=== PATIENT | female | born 1985 | race Caucasian/White ===

== ENCOUNTER 2016-07-20 13:08 | Outpatient (CLI) | payer MEDICAID ==
[~2016-07-20] VITALS: Ht 152.4 cm; Wt 76.0 kg
[2016-07-20 13:18] VITALS: Ht 152.4 cm; Wt 76.0 kg
[2016-07-20] MEDS ORDERED: PRENAT PO (13:19)
[2016-07-20 13:23] VITALS: BP 107/58; PULSE 98; RESP 18
--- NOTE | 2016-07-20 14:25 | RADRPT ---
PROCEDURE: US OB biophysical profile. CLINICAL INDICATION: decreased movements, status post fall TECHNIQUE: Multiple sonographic images of the pelvis were obtained. The images were reviewed on a PACS workstation. COMPARISON: No prior studies are available for comparison. FINDINGS: There is a single viable intrauterine gestation. Cardiac activity is present with 142 beats per min cher[place]ae [place]. There is a vertex presentation. The placenta is fundal. There is no evidence of placental abruption. There is a normal amount of amniotic fluid with an STEVE = 10.4 cm. Biophysical profile: movement 2/2 tone 2/2. breathing 2/2 STEVE 2/2 Total 11/23 RPTAT: AA . IMPRESSION: Normal biophysical profile. . .Edil Beach MD, Date Time Electronically viewed and signed by .Edil Beach MD, MD on 07/20/2016 14:25 .S/
--- NOTE | 2016-07-20 15:07 | TRIAGE ---
OB Triage Datetime Report Generated by CPN: 07/20/2016 15:06 Datetime: 07/20/2016 14:54 Labor Evaluation Frequency: x2 contractions noted in last hour Monitor Mode: External Quality: Mild Pattern: Normal: <= 5 Contractions in 10 Minutes Resting Tone [place]: Relaxed Heart Rate FHR Baseline Rate: 135 Monitor Mode: External US FHR Baseline Changes: No Baseline Change Variability: Moderate 6-25 bpm Accelerations: 15X15 Decelerations: None Category: Category I Datetime: 07/20/2016 13:53 Labor Evaluation Frequency: x2 contractions in last 30 minutes Monitor Mode: External Duration (sec)2399: 50-100 Quality: Mild Pattern: Normal: <= 5 Contractions in 10 Minutes Resting Tone [place]: Relaxed Heart Rate FHR Baseline Rate: 140 Monitor Mode: External US FHR Baseline Changes: No Baseline Change Variability: Moderate 6-25 bpm Accelerations: 15X15 Decelerations: None Category: Category I Pain Presence: None/Denies Pain Assessment Comments: Pt denies feeling pain or pressure with contractions Datetime: 07/20/2016 13:27 Vaginal Exam Dilatation (cms): 1.0 Effacement (%): 40 Station: -3 Exam By: Erin RN Datetime: 07/20/2016 13:25 Assessment Type: Triage Maternal Assessment Level of Consciousness: Fully Conscious DTR's/Clonus: DTRs 2+; No Clonus Headache: Denies Blurred Vision: No Respiratory Effort: Unlabored; Regular Rhythm; Equal Expansion Breath Sounds, Left: Clear and Equal Breath Sounds, Right: Clear and Equal Nausea/Vomiting: Denies RUQ Epigastric Pain: Denies Lower Extremities Edema: Bilateral Lower Extremities Degree: Trace Upper Extremities Edema: Bilateral Upper Extremities Degree: Trace Facial Edema: None Fall Risk Assessment History of Falling: (0) No Secondary Diagnosis: (0) No Ambulatory Aid: (0) Bedrest/Nurse Assist IV Therapy: (0) No Gait: (0) Normal/Bedrest/Immobile Mental Status: (0) Oriented to Own Ability Fall Score: 0 Fall Risk Score Definition: No Risk: No action required Datetime: 07/20/2016 13:23 Temperature Route: Oral Pain Assessment Pain Scale: 8 Pain Presence: Intermittent Pain Type: Ache Pain Location: Abdomen; Back Pain Goal: 0 Pain Relief Measures: Comfort Measures Pain Assessment Comments: Pt states pain is from fall, denying contractions Datetime: 07/20/2016 13:18 Time of Arrival: 07/20/2016 13:05 EGA: 39.2 Arrived By: Ambulatory Arrived From: Dr. Office Chief Complaint: Fall yesterday Movement: Present Contractions: Denies/Absent Rupture of Membranes: Denies Vaginal Bleeding: Normal Show Vaginal Discharge: Denies Recent Sexual Intercouse: Denies Abdominal Trauma: Fall Patient Complaints: Other Time Provider Notified: 07/20/2016 13:31 Provider Notified: Coy Initial Plan: NST, BPP Datetime: 07/20/2016 13:15 Stage of : OB Triage
--- NOTE | 2016-07-20 15:15 | CONS ---
Date/Time of Note Date/Time of Note DATE: 07/20/16 TIME: 15:07 Consultation Date/Type/Reason Admit Date/Time July 20, 2069 OB triage consult Reason for Consultation This patient is a 31 years old 3 para 2 who came to triage area regarding a bulge that she had yesterday In describing her fall she says she fell down on her buttock Her main complaint is lower abdominal and low back pain no complaint of vaginal bleeding or leakage of fluid from vagina her EDC is July 23 which makes her 39 weeks and 2 days now On reviewing her past history she does not have any history of allergy delivery was vaginal On examination she she has a short stature and is a lady at term Her ear nose throat neck chest all appears to be normal abdomen is soft occasional contraction babies in vertex presentation movement is Her lower extremities are normal no edema no major reflux or On pelvic examination her cervix was 1 cm 40% effaced -2 station no evidence of rupture of membrane 2 to confirm condition and ultrasound study was ordered On ultrasound biophysical profile was 11/23 STEVE 10.4 cm single viable intrauterine gestation with cardiac activity at 1 42 bpm cental was fundal no evidence of placental abruption was Subjective hx not possible: pt non-verbal Constitutional: No chills, No diaphoresis, No disoriented, No febrile, No improved, No no complaints, No other, No poor po, No requiring IVF, No requiring O2 Eyes: No discharge, No no complaints, No other, No pain, No redness, No visual change ENT: No bleeding, No congestion, No discharge, No dysphagia, No no complaints, No other, No pain, No sore throat Respiratory: No cough, No no complaints, No other, No pain, No pleuritic pain, No shortness of breath, No sputum, No wheezing Cardiovascular: No chest pain, No edema, No lightheadedness, No no complaints, No orthopenea, No other, No palpitations, No paroxysmal nocturnal dyspnea Gastrointestinal: No blood, No constipation, No decreased appetite, No diarrhea , No flatus, No nausea, No no complaints, No other, No pain, No passing stool, No vomiting Genitourinary: other (As I mentioned on pelvic examination the cervix was basically closed to 1 cm effacement was around 40% and at -3 station), No bleeding, No discharge, No dysuria, No flank pain, No hematuria, No no complaints Musculoskeletal: No back pain, No bone/joint pain, No neck pain, No no complaints, No other, No restricted range of motion, No swelling Skin: No bruising, No erythema, No laceration, No no complaints, No other, No pruritis, No rash, No skin lesions Neurologic: No confusion, No dizziness, No focal-weakness, No headache, No no complaints, No other, No seizure, No syncope Endocrine: other (Knee-jerk reflex was normal) Psychological: No anxiety, No confusion, No depression, No nl mood/affect, No no complaints, No other, No suicidal Additional Comments With these finding patient was reassured and recommended to make an appointment to be seen her manager pulmonary clinic for follow-up End of dictation thank you Social History Smoking Status: Never smoker Exam/Review of Systems Vital Signs Vitals Vital Signs Date Time Temp Pulse Resp B/P Pulse Ox O2 Delivery O2 Flow Rate FiO2 07/20/16 13:23 99.0 98 18 107/58 Room Air NATHAN DOS SANTOS MD Jul 20, 2016 15:15
== END 2016-07-20 15:00 | disposition home or self-care (01) ==
LOC: L-D 13:08 → OBT 13:08
PROVIDERS: ATTEND Obstetrics & Gynecology
DX: O26.893 Other specified pregnancy related conditions, third trimester (principal); R10.30 Lower abdominal pain, unspecified; M54.5 Low back pain; Z3A.39 39 weeks gestation of pregnancy
CPT/HCPCS: 76818; Z7500; G0463

== ENCOUNTER 2016-07-22 18:50 | Inpatient (IN) | payer MEDICAID ==
[~2016-07-22] VITALS: Ht 152.4 cm; Wt 75.4 kg
[~2016-07-22 18:50] MED LIST: PRENAT PO
[2016-07-22 19:13] VITALS: Ht 152.4 cm; Wt 75.4 kg
[2016-07-22 19:14] VITALS: BP 121/62; PULSE 88; RESP 20
--- NOTE | 2016-07-22 20:23 | RADRPT ---
PROCEDURE: US OB. CLINICAL INDICATION: Induction of labor. TECHNIQUE: Multiple sonographic images of the pelvis were obtained. Transabdominal imaging only w as performed. The images were reviewed on a PACS workstation. COMPARISON: Exam dated 07/20/2016. FINDINGS: There is a single viable intrauterine gestation. Cardiac activity is present with a heart rate of 1 37 bpm. There is a cephalic presentation. Measurements were made in order to determine age. The results are as follows: BPD = 9.16 cm HC = 32.95 cm AC = 35.67 cm FL = 7.2 a cm Estimated gestational age of approximately 37 weeks 6 days. The estimated date of delivery is 08/06/2016. The EFW = 3519 g, at the 48 percentile. The placenta is fundal, grade II. There is no evidence for an abruption or placenta previa. IMPRESSION: 1. Single viable intrauterine gestation of approximately 37 weeks 6 days. 2. The estimated date of delivery is 08/06/2016. RPTAT: HLBP .Faustino Pedroza MD, MD Date Time Electronically viewed and signed by .Faustino Pedroza MD, MD on 07/22/2016 20:23 .P/
--- NOTE | 2016-07-22 20:24 | RADRPT ---
PROCEDURE: OB ultrasound for biophysical profile with STEVE. CLINICAL INDICATION: Decreased movements. TECHNIQUE: Multiple sonographic images of the gravid uterus were obtained. The images were review ed on a PACS workstation. COMPARISON: None. FINDINGS: breathing movement = 2/2 tone = 2/2 motion = 2/2 STEVE = 2/2 There is a single viable intrauterine gestation with cardiac and a heart rate of 142 bpm. Ther e is a cephalic presentation and a fundal, grade II placenta. There is no evidence of abruption or placenta previa. STEVE = 9.5 cm IMPRESSION: 1. Single viable intrauterine gestation. 2. Biophysical profile = 8/8. 3. STEVE = 9.5 cm. RPTAT: HLBP .Faustino Pedroza MD, MD Date Time Electronically viewed and signed by .Faustino Pedroza MD, MD on 07/22/2016 20:23 .P/
[2016-07-22] MEDS ORDERED: CARBOPROST 250 MCG INJ IM PRN (21:30)
[2016-07-22] MEDS ORDERED: OXYTOCIN 30 UNITS/LR 500 ML IV PRN (21:30)
[2016-07-22] MEDS ORDERED: LACTATED RINGER'S 1,000 ML IV PRN (21:30)
[2016-07-22] MEDS ORDERED: METHYLERGONOVINE 0.2 MG INJ IM PRN (21:30)
[2016-07-22] MEDS ORDERED: MISOPROSTOL 200 MCG TAB PR PRN (21:30)
[2016-07-22] MEDS ORDERED: OXYTOCIN 30 UNITS/LR 500 ML IV SCH ×2 (21:30→23:15)
[2016-07-22] MEDS ORDERED: LIDOCAINE 1% (MPF) 30 ML INJ INJ PRN (21:30)
[2016-07-22] MEDS: LACTATED RINGER'S 1,000 ML IV SCH (22:09)
[2016-07-22 22:14] LABS: ADD SCAN DIFF NO
[2016-07-22 22:18] LABS: BASOPHILS % 0.2 % (0.0-2.0); EOSINOPHILS # 0.1 10^3/ul (0.0-0.5); EOSINOPHILS % 0.7 % (0.0-7.0); HEMATOCRIT 33.5 % (37.0-47.0); HEMOGLOBIN 11.4 g/dl (12.0-16.0); LYMPHOCYTES # 1.9 10^3/ul (0.8-2.9); LYMPHOCYTES % 19.4 % (15.0-51.0); MEAN CORPUSCULAR HEMOGLOBIN 29.8 pg (29.0-33.0); MEAN CORPUSCULAR VOLUME 87.7 fl (82.0-101.0); MEAN PLATELET VOLUME 9.8 fl (7.4-10.4); MONOCYTE # 0.8 10^3/ul (0.3-0.9); MONOCYTES % 7.7 % (0.0-11.0); NEUTROPHIL # 7.1 10^3/ul (1.6-7.5); NEUTROPHILS % 71.3 % (39.0-77.0); PLATELET COUNT 190 10^3/UL (140-415); RED BLOOD COUNT 3.82 10^6/ul (4.20-5.40); RED CELL DISTRIBUTION WIDTH 13.7 % (11.5-14.5)
[2016-07-22 22:27] LABS: INR 0.9; PARTIAL THROMBOPLASTIN TIME 25.7 Sec (25.0-35.0); PROTIME 12.1 Sec (12.2-14.2); PT RATIO 0.9
--- NOTE | 2016-07-22 23:06 | HP ---
Date/Time of Note Date/Time of Note DATE: 07/22/16 TIME: 22:49 OB - History Hx of Present Free Text/Dictation 30 yo P2 @ 39+ wks presents w decreased FM, now feels baby moving. Desires elective induction, as she had a previous full-term stillborn POB- x 1; x 1-stillborn, possible trisomy 18 Last Menstrual Period: Oct 26, 2015 Estimated Due Date: Jul 31, 2016 : 3 Para: 2 Care: Good Care Past Family/Social History * Past Medical, Surgical, Family and Obstetric Histories reviewed from chart. Blood Type: O+ Rubella: immune RPR/VDRL: Negative GBS Status: Negative HBsAG: Negative OB Admission Exam Vital Signs Vital Signs Vital Signs Date Time Temp Pulse Resp B/P Pulse Ox O2 Delivery O2 Flow Rate FiO2 07/22/16 19:14 98.3 88 20 121/62 Room Air Physical Exam Abdomen: WNL Cervical Dilatation: 2cm Effacement: 50% Station: -3 Membranes: Intact Accelerations: Accelerations Present Contractions on Admission: < 5 Minutes Apart Intensity: Mild Last 72 hours Lab Results CBC & BMP 07/22/16 22:00 OB Assessment/Plan Other Assessment: patient desires IOL, secondary to h/o stillborn - reassuring status Other plan: will start pitocin after patient eats and ambulates epidural prn anticipate NICOLA Jackson MD Jul 22, 2016 22:59
[2016-07-22 23:43] LABS: ALBUMIN 3.2 g/dl (3.3-4.9); BILIRUBIN,INDIRECT 0.2 mg/dl (0-1.1); BILIRUBIN,TOTAL 0.2 mg/dl (0.2-1.3); CALCIUM 9.9 mg/dl (8.4-10.2); CREATININE 0.5 mg/dl (0.44-1.00); POTASSIUM 3.9 mmol/L (3.5-5.1); TOTAL PROTEIN 6.4 g/dl (6.1-8.1); URIC ACID 5.8 mg/dl (3.1-7.9)
[2016-07-23 00:51] LABS: ADD UMIC YES; URINE BILIRUBIN (Dip) NEGATIVE (NEGATIVE); URINE BLOOD (Dip) 1+ (NEGATIVE); URINE COLOR LT. YELLOW (YELLOW); URINE GLUCOSE (Dip) NEGATIVE (NEGATIVE); URINE KETONES (Dip) NEGATIVE (NEGATIVE); URINE LEUKOCYTE ESTERASE (Dip) NEGATIVE (NEGATIVE); URINE NITRITE (Dip) NEGATIVE (NEGATIVE); URINE TOTAL PROTEIN (Dip) NEGATIVE (NEGATIVE); URINE UROBILINOGEN (Dip) 1.0 E.U./dL (0.1-1.0)
[2016-07-23 01:44] LABS: BACTERIA,URINE FEW; SQUAMOUS EPITHELIAL CELL,UR RARE; URINE RBCS 0-2 /HPF (0)
--- NOTE | 2016-07-23 02:16 | TRIAGE ---
OB Triage Datetime Report Generated by CPN: 07/23/2016 02:15 Datetime: 07/23/2016 02:00 Stage of : Labor Labor Evaluation Frequency: 2-4 Monitor Mode: External Duration (sec)2399: 60-120 Quality: Mild Pattern: Normal: <= 5 Contractions in 10 Minutes Resting Tone [place]: Relaxed Heart Rate FHR Baseline Rate: 130 Monitor Mode: External US Variability: Moderate 6-25 bpm Accelerations: 15X15 Decelerations: None Category: Category I Pain Relief Measures: Comfort Measures Datetime: 07/23/2016 01:37 Monitor Mode: Palpation Quality: Mild Resting Tone [place]: Relaxed Datetime: 07/23/2016 01:30 Stage of : Labor Labor Evaluation Frequency: 2-6 Monitor Mode: External Duration (sec)2399: 70-120 Quality: Mild Pattern: Normal: <= 5 Contractions in 10 Minutes Resting Tone [place]: Relaxed Heart Rate FHR Baseline Rate: 135 Monitor Mode: External US Variability: Moderate 6-25 bpm Accelerations: 15X15 Decelerations: None Category: Category I Pain Relief Measures: Comfort Measures Datetime: 07/23/2016 01:00 Stage of : Labor Labor Evaluation Frequency: irreg Monitor Mode: External Duration (sec)2399: 30-80 Quality: Mild Pattern: Normal: <= 5 Contractions in 10 Minutes Resting Tone [place]: Relaxed Heart Rate FHR Baseline Rate: 140 Monitor Mode: External US Variability: Moderate 6-25 bpm Accelerations: 15X15 Decelerations: None Category: Category I Pain Relief Measures: Comfort Measures Datetime: 07/23/2016 00:39 Labor Evaluation Frequency: 1-5 Monitor Mode: External Duration (sec)2399: 60-90 Quality: Mild Pattern: Normal: <= 5 Contractions in 10 Minutes Resting Tone [place]: Relaxed Heart Rate FHR Baseline Rate: 145 Monitor Mode: External US Variability: Moderate 6-25 bpm Accelerations: 15X15 Decelerations: None Category: Category I Comments: STRIP REVIEW LAST 15 MINS Datetime: 07/23/2016 00:00 Labor Evaluation Frequency: irregular Monitor Mode: External Quality: Mild Pattern: Normal: <= 5 Contractions in 10 Minutes Resting Tone [place]: Relaxed Heart Rate FHR Baseline Rate: 155 Monitor Mode: External US FHR Baseline Changes: No Baseline Change Variability: Moderate 6-25 bpm Accelerations: 15X15 Decelerations: None Category: Category I Datetime: 07/22/2016 23:44 Temperature Route: Oral Pain Assessment Pain Scale: 8 Pain Presence: Intermittent Pain Type: Cramping Pain Location: Abdomen; Back Pain Goal: 4 Pain Relief Measures: Comfort Measures Datetime: 07/22/2016 23:41 Monitor Mode: Palpation Quality: Mild Resting Tone [place]: Relaxed Datetime: 07/22/2016 23:00 Stage of : Labor Labor Evaluation Frequency: irreg Monitor Mode: External Duration (sec)2399: 60-130 Quality: Mild Pattern: Normal: <= 5 Contractions in 10 Minutes Resting Tone [place]: Relaxed Contraction Comments: difficult to pickle solution maker UC's Heart Rate FHR Baseline Rate: 130 Monitor Mode: External US Variability: Moderate 6-25 bpm Accelerations: 15X15 Decelerations: None Category: Category I Pain Relief Measures: Comfort Measures Datetime: 07/22/2016 22:38 Monitor Mode: Palpation Quality: Mild Resting Tone [place]: Relaxed Datetime: 07/22/2016 22:00 Stage of : Labor Labor Evaluation Frequency: 1-6 Monitor Mode: External Duration (sec)2399: 50-80 Quality: Mild Pattern: Normal: <= 5 Contractions in 10 Minutes Resting Tone [place]: Relaxed Heart Rate FHR Baseline Rate: 130 Monitor Mode: External US Variability: Moderate 6-25 bpm Accelerations: 15X15 Decelerations: None Category: Category I Pain Relief Measures: Comfort Measures Datetime: 07/22/2016 21:54 Monitor Mode: Palpation Quality: Mild Resting Tone [place]: Relaxed Datetime: 07/22/2016 21:51 Monitor Mode: External US Datetime: 07/22/2016 21:05 Assessment Type: Admission Assessment Maternal Assessment Level of Consciousness: Fully Conscious DTR's/Clonus: DTRs 2+; No Clonus Headache: Denies Blurred Vision: No Respiratory Effort: Unlabored; Regular Rhythm; Equal Expansion Breath Sounds, Left: Clear and Equal Breath Sounds, Right: Clear and Equal Nausea/Vomiting: Denies RUQ Epigastric Pain: Denies Lower Extremities Edema: None Degree: None Upper Extremities Edema: None Degree: None Facial Edema: None Fall Risk Assessment History of Falling: (0) No Secondary Diagnosis: (0) No Ambulatory Aid: (0) Bedrest/Nurse Assist IV Therapy: (0) No Gait: (0) Normal/Bedrest/Immobile Mental Status: (0) Oriented to Own Ability Fall Score: 0 Fall Risk Score Definition: No Risk: No action required Datetime: 07/22/2016 21:00 Stage of : Labor Labor Evaluation Frequency: 2-7 Monitor Mode: External Duration (sec)2399: 60-120 Quality: Mild Pattern: Normal: <= 5 Contractions in 10 Minutes Resting Tone [place]: Relaxed Heart Rate FHR Baseline Rate: 130 Monitor Mode: External US Variability: Moderate 6-25 bpm Accelerations: 15X15 Decelerations: None Category: Category I Pain Relief Measures: Comfort Measures Datetime: 07/22/2016 20:55 Stage of : Labor Time of Arrival: 07/22/2016 20:55 EGA: 39.4 Arrived By: Ambulatory Arrived From: TRIAGE Datetime: 07/22/2016 20:34 Vaginal Exam Dilatation (cms): 2.5 Effacement (%): 50 Station: -3 Exam By: dgs RN Vaginal Bleeding: None Cervix, Consistency: Moderate Cervix, Position: Posterior Datetime: 07/22/2016 20:00 Stage of : OB Triage Labor Evaluation Frequency: IRREG Monitor Mode: External Duration (sec)2399: 70-130 Quality: Mild Pattern: Normal: <= 5 Contractions in 10 Minutes Resting Tone [place]: Relaxed Heart Rate FHR Baseline Rate: 135 Monitor Mode: External US Variability: Moderate 6-25 bpm Accelerations: 15X15 Decelerations: None Category: Category I Pain Relief Measures: Comfort Measures Datetime: 07/22/2016 19:50 Monitor Mode: Palpation Quality: Mild Resting Tone [place]: Relaxed Monitor Mode: External US Datetime: 07/22/2016 19:30 Assessment Type: Triage Maternal Assessment Level of Consciousness: Fully Conscious DTR's/Clonus: DTRs 2+; No Clonus Headache: Denies Blurred Vision: No Respiratory Effort: Unlabored; Regular Rhythm; Equal Expansion Breath Sounds, Left: Clear and Equal Breath Sounds, Right: Clear and Equal Nausea/Vomiting: Denies RUQ Epigastric Pain: Denies Lower Extremities Edema: None Degree: None Upper Extremities Edema: None Degree: None Facial Edema: None Fall Risk Assessment History of Falling: (0) No Secondary Diagnosis: (0) No Ambulatory Aid: (0) Bedrest/Nurse Assist IV Therapy: (0) No Gait: (0) Normal/Bedrest/Immobile Mental Status: (0) Oriented to Own Ability Fall Score: 0 Fall Risk Score Definition: No Risk: No action required Datetime: 07/22/2016 19:27 Comments: OFF MONITOR Datetime: 07/22/2016 19:26 Time of Arrival: 07/22/2016 18:50 EGA: 39.4 Arrived By: Ambulatory Arrived From: Office Chief Complaint: C/O UC'S, BACK _ ABDOMINAL PAIN PT C/O OF DECREASE MOVEMENT IN CLINIC, PT CAME W/ ORDER FROM MD FOR BPP _ EFW Movement: Decreased Contractions: Irregular Time Contractions Began: 07/19/2016 16:00 Contractions: PT STATES MORE UC'S FELT WHEN WALKING Rupture of Membranes: Denies Vaginal Bleeding: None Vaginal Discharge: Denies Recent Sexual Intercouse: Denies Abdominal Trauma: Not Applicable Patient Complaints: Cramping; Back Pain Time Provider Notified: 07/22/2016 19:30 Provider Notified: SHAJI Initial Plan: CONTINUOUS EFM BPP _ EFW Datetime: 07/22/2016 19:23 Temperature Route: Oral Pain Assessment Pain Scale: 8 Pain Presence: Intermittent Pain Type: Cramping Pain Location: Abdomen; Back Pain Goal: 4 Pain Relief Measures: Comfort Measures Datetime: 07/22/2016 19:20 Stage of : OB Triage Datetime: 07/22/2016 19:13 Membrane Status: Intact Datetime: 07/20/2016 13:25 Fall Score: 0 Fall Risk Score Definition: No Risk: No action required Datetime: 07/20/2016 13:18 EGA: 39.2
[2016-07-23] MEDS: LACTATED RINGER'S 1,000 ML IV SCH ×2 (05:00→14:00)
[2016-07-23] MEDS ORDERED: BUTORPHANOL 2 MG INJ ONE (08:36)
[2016-07-23] MEDS ORDERED: BUTORPHANOL 2 MG INJ IV PRN (09:00)
[2016-07-23] MEDS ORDERED: FENTAnyl 2MCG/ML-ROPIV 0.2% 100 ML BAG EPI SCH (10:00)
[2016-07-23] MEDS ORDERED: NALOXONE (0.4 MG/ML) INJ IV PRN (10:00)
[2016-07-23] MEDS: OXYTOCIN 30 UNITS/LR 500 ML IV SCH ×3 (14:37→18:58)
[2016-07-23] MEDS ORDERED: IBUPROFEN 600 MG TAB PO STA (15:48)
[2016-07-23 17:20] VITALS: BP 138/69; PULSE 60; RESP 18
[2016-07-23] MEDS ORDERED: ACETAMINOPHEN/CODEINE #3 TAB PO PRN ×2 (17:30)
[2016-07-23] MEDS ORDERED: ONDANSETRON 4 MG INJ IV PRN (17:30)
[2016-07-23] MEDS ORDERED: DIBUCAINE 1% 30 GM OINT PR PRN (17:30)
[2016-07-23] MEDS ORDERED: CARBOPROST 250 MCG INJ IM PRN (17:30)
[2016-07-23] MEDS ORDERED: ACETAMINOPHEN 325 MG TAB PO PRN (17:30)
[2016-07-23] MEDS ORDERED: METHYLERGONOVINE 0.2 MG INJ IM PRN (17:30)
[2016-07-23] MEDS ORDERED: BENZOCAINE 20% 56 ML SPRAY TOP PRN (17:30)
[2016-07-23] MEDS ORDERED: LANOLIN 7 GM TUBE TOP PRN (17:30)
[2016-07-23] MEDS ORDERED: OXYCODONE/ASPIRIN (4.88/325) TAB PO PRN ×2 (17:30)
[2016-07-23] MEDS ORDERED: MISOPROSTOL 200 MCG TAB PR PRN (17:30)
[2016-07-23] MEDS ORDERED: WITCH HAZEL/GLYCERIN PAD PR PRN (17:30)
[2016-07-23] MEDS ORDERED: OXYTOCIN 30 UNITS/LR 500 ML IV PRN (17:30)
[2016-07-23] MEDS: IBUPROFEN 600 MG TAB PO SCH (18:00)
[2016-07-23 20:22] VITALS: BP 111/64; PULSE 67; RESP 19
[2016-07-24] MEDS: SENNA/DOCUSATE NA (8.6MG/50MG) TAB PO SCH ×3 (00:09→20:55)
[2016-07-24] MEDS: IBUPROFEN 600 MG TAB PO SCH ×7 (00:09→23:33)
[2016-07-24] MEDS: OXYTOCIN 30 UNITS/LR 500 ML IV SCH (00:29)
[2016-07-24 04:26] VITALS: BP 124/69; PULSE 70; RESP 19
[2016-07-24 07:48] LABS: ADD SCAN DIFF NO
[2016-07-24 07:53] LABS: BASOPHILS % 0.2 % (0.0-2.0); EOSINOPHILS # 0.1 10^3/ul (0.0-0.5); HEMOGLOBIN 10.5 g/dl (12.0-16.0); LYMPHOCYTES # 2.3 10^3/ul (0.8-2.9); LYMPHOCYTES % 20.8 % (15.0-51.0); MEAN CORPUSCULAR HEMOGLOBIN 29.1 pg (29.0-33.0); MEAN CORPUSCULAR HGB CONC 32.8 g/dl (32.0-37.0); MEAN CORPUSCULAR VOLUME 88.6 fl (82.0-101.0); MEAN PLATELET VOLUME 10.7 fl (7.4-10.4); MONOCYTE # 0.9 10^3/ul (0.3-0.9); MONOCYTES % 7.8 % (0.0-11.0); NEUTROPHIL # 7.6 10^3/ul (1.6-7.5); NEUTROPHILS % 69.6 % (39.0-77.0); PLATELET COUNT 165 10^3/UL (140-415); RED BLOOD COUNT 3.61 10^6/ul (4.20-5.40); RED CELL DISTRIBUTION WIDTH 13.7 % (11.5-14.5)
[2016-07-24 08:00] VITALS: BP 102/58; PULSE 73; RESP 18
--- NOTE | 2016-07-24 11:04 | PN ---
Date/Time of Note Date/Time of Note DATE: 07/24/16 TIME: 11:02 OB Subjective Subjective Subjective day 1 Afebrile abdomen soft uterus firm lochia extremity normal. Laboratory Tests Test 07/24/16 06:40 White Blood Count 11.010^3/ul Red Blood Count 3.6110^6/ul Hemoglobin 10.5g/dl Hematocrit 32.0% Mean Corpuscular Volume 88.6fl Mean Corpuscular Hemoglobin 29.1pg Mean Corpuscular Hemoglobin Concent 32.8g/dl Red Cell Distribution Width 13.7% Platelet Count 33582^3/UL Mean Platelet Volume 10.7fl Neutrophils % 69.6% Lymphocytes % 20.8% Monocytes % 7.8% Eosinophils % 1.0% Basophils % 0.2% Nucleated Red Blood Cells % 0.0/100WBC Neutrophils # 7.610^3/ul Lymphocytes # 2.310^3/ul Monocytes # 0.910^3/ul Eosinophils # 0.110^3/ul Basophils # 0.010^3/ul Nucleated Red Blood Cells # 0.010^3/ul Current Medications Medications (Trade) Dose Ordered Sig/Mehnaz Route PRN Reason Start Time Stop Time Status Last Admin Dose Admin Lactated Ringer's (Lr) 1,000 ml @ 125 mls/hr Q8H IV 07/22/16 21:14 07/23/16 17:14 DC 07/23/16 14:00 Lidocaine 30 ml 30 ml ONCE PRN INJ EPISIOTOMY/TEARING 07/22/16 21:30 07/23/16 17:14 DC Oxytocin/Lactated Ringer's 500 ml @ 125 mls/hr ONCE -MAY REPEAT X1 IV 07/22/16 21:30 07/23/16 17:14 DC 07/23/16 14:49 Oxytocin/Lactated Ringer's 500 ml @ 125 mls/hr ONCE IV 07/22/16 21:30 07/23/16 17:14 DC Lactated Ringer's 1,000 ml @ 2,000 mls/hr Q30M PRN IV PRE-EPIDURAL BOLUS 07/22/16 21:30 07/23/16 17:14 DC 07/23/16 09:05 Oxytocin/Lactated Ringer's 500 ml @ 0 mls/hr ONCE PRN IV For Hemorrhage Management 07/22/16 21:30 4/7/17 17:14 DC Methylergonovine Maleate (Methergine) 0.2 mg ONCE PRN IM VAGINAL BLEEDING 07/22/16 21:30 07/23/16 17:14 DC Carboprost Tromethamine (Hemabate) 250 mcg ONCE PRN IM VAGINAL BLEEDING 07/22/16 21:30 07/23/16 17:14 DC Misoprostol 1000 mcg 1,000 mcg ONCE PRN [place] VAGINAL BLEEDING 07/22/16 21:30 07/23/16 17:14 DC Oxytocin/Lactated Ringer's 500 ml @ 0 mls/hr Q0M IV 07/22/16 23:15 07/23/16 17:14 DC 07/22/16 23:39 Butorphanol Tartrate (Stadol) 2 mg STK-MED ONCE .ROUTE 07/23/16 08:36 07/23/16 08:37 DC Butorphanol Tartrate (Stadol) 2 mg Q2H PRN IV PAIN 07/23/16 09:00 07/23/16 17:14 DC 07/23/16 09:05 Naloxone HCl (Narcan) 0.2 mg Q2M PRN IV FOR RESP RATE 8 OR LESS 07/23/16 10:00 07/23/16 17:14 DC Fentanyl/ Ropivacaine 100 ml EPIDURAL (PCEA) EPI 07/23/16 10:00 07/23/16 17:14 DC Ibuprofen 600 mg 600 mg ONCE STAT PO 07/23/16 15:48 07/23/16 15:51 DC 07/23/16 16:00 Oxytocin/Lactated Ringer's 500 ml @ 125 mls/hr Q4H IV 07/23/16 17:12 07/24/16 00:30 DC 07/23/16 18:58 Ibuprofen (Motrin) 600 mg Q6 PO 07/23/16 18:00 07/24/16 05:53 Acetaminophen (Tylenol Tab) 650 mg Q4H PRN PO PAIN LEVEL 1-5 07/23/16 17:30 Acetaminophen/ Codeine Phosphate (Tylenol No.3) 1 tab Q4H PRN PO PAIN LEVEL 1-5 07/23/16 17:30 07/23/16 18:35 Acetaminophen/ Codeine Phosphate (Tylenol No.3) 2 tab Q4H PRN PO PAIN LEVEL 6-10 07/23/16 17:30 Oxycodone/Aspirin (Percodan) 1 tab Q3H PRN PO PAIN LEVEL 1-5 07/23/16 17:30 Oxycodone/Aspirin (Percodan) 2 tab Q3H PRN PO PAIN LEVEL 6-10 07/23/16 17:30 Ondansetron HCl (Zofran Inj) 4 mg Q6H PRN IV NAUSEA AND/OR VOMITING 07/23/16 17:30 Senna/Docusate Sodium (Senokot-S) 1 tab BID PO 07/23/16 21:00 07/24/16 09:39 Witch Summer/ Glycerin (Tucks Pads) 1 pad BEDSIDE MEDICATION PRN [place] HEMORRHOID/EPISIOTMY PAIN 07/23/16 17:30 07/23/16 18:33 Benzocaine (Dermoplast Rembert) 1 spray BEDSIDE MEDICATION PRN TOP HEMORRHOID/EPISIOTMY PAIN 07/23/16 17:30 07/23/16 18:32 Dibucaine (Nupercainal) 1 applic BEDSIDE MEDICATION PRN [place] HEMORRHOID/EPISIOTMY PAIN 07/23/16 17:30 Lanolin (Lsz-C-Nahejj) 1 applic BEDSIDE MEDICATION PRN TOP BEDSIDE FOR LEONARDO TO NIPPLES 07/23/16 17:30 07/23/16 18:34 Measles/Mumps/ Rubella Vaccine Live 0.5 ml 0.5 ml ONCE ONCE SC* 07/25/16 09:00 07/25/16 09:01 Oxytocin/Lactated Ringer's 500 ml @ 0 mls/hr ONCE PRN IV For Hemorrhage Management 07/23/16 17:30 Methylergonovine Maleate (Methergine) 0.2 mg ONCE PRN IM VAGINAL BLEEDING 07/23/16 17:30 Carboprost Tromethamine (Hemabate) 250 mcg ONCE PRN IM VAGINAL BLEEDING 07/23/16 17:30 Misoprostol (Cytotec) 1,000 mcg ONCE PRN [place] VAGINAL BLEEDING 07/23/16 17:30 AMALIA THRASHER MD Jul 24, 2016 11:04
[2016-07-24 12:00] VITALS: BP 106/64; PULSE 68; RESP 19
[2016-07-24 15:22] VITALS: BP 107/59; PULSE 72; RESP 18
[2016-07-24 20:05] VITALS: BP 100/58; PULSE 72; RESP 18
[2016-07-25 04:24] VITALS: BP 110/55; PULSE 57; RESP 18
[2016-07-25] MEDS: IBUPROFEN 600 MG TAB PO SCH ×2 (05:42→12:06)
[2016-07-25 08:15] VITALS: BP 109/56; PULSE 61; RESP 16
[2016-07-25] MEDS: SENNA/DOCUSATE NA (8.6MG/50MG) TAB PO SCH (08:55)
[2016-07-25] MEDS ORDERED: MEASLES,MUMPS,RUBELLA VACCINE INJ SC* ONE (09:00)
--- NOTE | 2016-07-25 16:42 | LDN ---
Date/Time of Note Date/Time of Note DATE: 07/25/16 TIME: 16:21 Delivery Summary Normal spontaneous vaginal delivery baby girl from SARAH position shoulders delivered without any difficulty rest of the baby's body followed cord clamped after stopped pulsation placenta spontaneous expulsion inspected complete estimated blood loss 250 mL vaginal and perineum inspected negative for any laceration Weeks of Gestation 39 weeks and 4 days Placenta Delivered: Spontaneously Meconium: none Episiotomy: Yes Anesthesia type: Epidural Estimated blood loss: 250 Sponge & Needle done & correct: Yes All needle counts correct: Yes Any foreign bodies felt in the: No Problems: Delivery Information Sex Sex: female Apgars 1 Minute: 9 5 Minute: 9 Suctioning Nose & mouth suctioned at lorne: Yes Delee suction performed: No Umbilical Cord Umbilical cord with: 3 Vessels Cord presentations: no nuchal cord Cord Blood was obtained: Yes AMALIA THRASHER MD Jul 25, 2016 16:33
--- NOTE | 2016-07-25 16:45 | DS ---
Date/Time of Note Date/Time of Note DATE: 07/25/16 TIME: 16:42 Discharge Summary Admission/Discharge Info Admit Date/Time Jul 22, 2016 at 20:55 Discharge Date/Time July 25 at 1640 Final Diagnosis Term normal vaginal delivery Patient Condition: Good Consults None Procedures Normal spontaneous vaginal delivery Hx of Present Illness Term Hospital Course Satisfactory Home Meds Reported Medications Multivit/Min/Fol Ac/Iron/Pren* ( S*) 1 Tab Tab, 1 TAB PO DAILY, TAB 07/20/16 Follow-up Plan Appointment clinic in 2 weeks for follow-up AMALIA THRASHER MD Jul 25, 2016 16:45
== END 2016-07-25 17:25 | disposition home or self-care (01) | DRG 775 ==
LOC: OBT 18:50 → L-D 18:54 → OBT 20:55 → PP1 07-23 17:00
PROVIDERS: ADMIT Obstetrics & Gynecology; ATTEND Obstetrics & Gynecology
PROC: 3E033VJ Introduction of Other Hormone into Peripheral Vein, Percutaneous Approach (ICD-10-PCS; 2016-07-22)
PROC: 10E0XZZ Delivery of Products of Conception, External Approach (ICD-10-PCS; principal; 2016-07-25)
PROC: 0W8NXZZ Division of Female Perineum, External Approach (ICD-10-PCS; 2016-07-25)
DX: O80 Encounter for full-term uncomplicated delivery (principal); Z87.59 Personal history of other complications of pregnancy, childbirth and the puerperium; Z3A.39 39 weeks gestation of pregnancy
CPT/HCPCS: 62319; 76815; 76818; 80053; 81001; 81003; 84560; 85025; 85610; 85730; 86592; 86900; 86901; G0463; J2590; J3010; J7120